=== PATIENT | female | born 1960 | race Caucasian/White ===

== ENCOUNTER 2023-06-11 11:13 | Emergency (ER) | payer MEDICAID ==
[~2023-06-11] VITALS: Ht 162.6 cm; Wt 81.8 kg
[2023-06-11 12:07] LABS: Basophils # (auto) 0.1 10 ^3/uL (0-0.2); Basophils % (auto) 0.7 % (0.0-2.0); Eosinophils # (auto) 0 10 ^3/uL (0-0.8); Eosinophils % (auto) 0.2 % (0.0-7.0); Hematocrit 47.9 % (36.0-46.0); Hemoglobin 16.4 g/dL (12.2-16.2); Lymphocytes # (auto) 2.2 10 ^3/uL (0.4-5.4); Mean Corpuscular Hemoglobin 30.9 pg (28.0-32.0); Mean Corpuscular Hgb Conc. 34.2 g/dL (32.0-36.0); Mean Corpuscular Volume 90.6 fL (80.0-100.0); Monocytes # (auto) 0.9 10 ^3/uL (0-1.3); Monocytes % (auto) 5.5 % (0.0-12.0); Neutrophils # (auto) 13.4 10 ^3/uL (1.6-8.6); Neutrophils % (auto) 80.6 % (37.0-80.0); Nucleated Red Blood Cells % 0.1 %; Red Blood Cells 5.29 10^6/uL (4.0-5.20); Red Cell Distribution Width 13.5 % (11.8-14.3); White Blood Cell 16.6 10^3/uL (4.4-10.8)
[2023-06-11 12:40] LABS: Alanine Aminotransferase 20 U/L (7-40); Albumin 4.3 g/dL (3.2-4.8); Alkaline Phosphatase 81 U/L (46-116); Anion Gap 9 (5-15); Aspartate Aminotransferase 19 U/L (13-40); BUN/Creatinine Ratio 15.1 (10.0-20.0); Blood Urea Nitrogen 14 mg/dL (9-23); Calcium 9.3 mg/dL (8.7-10.4); Carbon Dioxide 21 mmol/L (20-30); Chloride 105 mmol/L (98-107); Glucose 183 mg/dL (74-106); Potassium 3.9 mmol/L (3.5-5.1); Sodium 135 mmol/L (136-145)
[2023-06-11 14:27] LABS: Bilirubin, Total 0.5 mg/dL (0.2-1.0)
[2023-06-11] MEDS ORDERED: DexAMETHasone SOD PHOS 10MG/1ML VIAL INJ IM ONE (14:30)
[2023-06-11] MEDS ORDERED: TETANUS-DIPTH-ACEL PERTUSSIS 0.5ML SYR Tdap IM ONE (15:00)
[2023-06-11] MEDS ORDERED: NEOMYCIN-BACITRACIN-POLYM UNITDOSE PKG TOP OINT TOP ONE (15:00)
[2023-06-11 16:52] LABS: Urine Bacteria NONE SEEN /hpf (None Seen); Urine Blood Negative /uL (Negative); Urine Clarity HAZY (Clear); Urine Color Yellow (Yellow); Urine Mucus FEW (None Seen); Urine Protein, UAD TRACE (Negative); Urine Specific Gravity 1.025 (1.001-1.035); Urine Urobilinogen Normal (Negative); Urine WBC 48 /hpf (0 - 5)
[2023-06-11] MEDS ORDERED: NITR-87 PO (17:10)
[2023-06-11] MEDS ORDERED: BACIOIN15 TOP (17:10)
[2023-06-11 17:30] VITALS: BP 131/93; PULSE 99; RESP 18; TEMP 97.6; O2SAT 95
== END 2023-06-11 17:43 | disposition home or self-care (01) ==
LOC: ER 11:13
DX: R55 Syncope and collapse (principal); S01.01XA Laceration without foreign body of scalp, initial encounter; N39.0 Urinary tract infection, site not specified; W18.39XA Other fall on same level, initial encounter; Y93.H2 Activity, gardening and landscaping; Y92.89 Other specified places as the place of occurrence of the external cause; Y99.8 Other external cause status
CPT/HCPCS: 36415; 70450; 80053; 81001; 85025; 90471; 90715; 96372; 99285; J1100

== ENCOUNTER 2023-10-12 14:28 | Emergency (ER) | payer SELFPAY ==
[~2023-10-12] VITALS: Ht 160 cm; Wt 85.1 kg
[~2023-10-12 14:28] MED LIST: BACIOIN15 TOP; NITR-87 PO
[2023-10-12 16:45] VITALS: BP 154/88; PULSE 110; RESP 18; TEMP 98; O2SAT 96
== END 2023-10-12 18:20 | disposition home or self-care (01) ==
LOC: ER 14:28
DX: S61.216A Laceration without foreign body of right little finger without damage to nail, initial encounter (principal); Z79.899 Other long term (current) drug therapy; W22.8XXA Striking against or struck by other objects, initial encounter; Y93.89 Activity, other specified; Y92.89 Other specified places as the place of occurrence of the external cause; Y99.8 Other external cause status
CPT/HCPCS: 12001